=== PATIENT | male | born 2000 | race Caucasian/White ===

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

== ENCOUNTER 2021-01-04 07:43 | Outpatient (RCR) | payer BC, SELFPAY ==
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
--- NOTE | 2021-02-15 11:00 | PCOTNOTE ---
On 02/15/21, the student, [Nydia Bustos ], provided care and completed [facility] documentation on this patient. I have reviewed the student's documentation and agree with the findings. MS
--- NOTE | 2021-02-21 08:50 | OTOPEVAL ---
Thank you for referring Omar Torres to [facility].? The patient is scheduled to be seen for therapy? ____x/week for ___ weeks. Please review, sign, date and return this plan of care NASRIN. I agree with and certify that the following plan of care is medically necessary. Referring Physician Date Admitting Provider: Attending Provider: KENDRICK QUINN Referring Provider: *OT Outpatient Evaluation Start: 01/04/21 07:04 Freq: Status: Active Protocol: Document 02/21/21 07:28 [facility] [place] (Rec: 02/21/21 08:17 [facility] [place] [id number]) Therapy Assessment Status Assessment Status Assessment Status Re-evaluation Outpatient Past Medical History Musculoskeletal History Hx Fractures Yes Hx Orthopedic Surgery Yes Evaluation Information Problem Subjective Information Patient reports that he is Query Text:As Reported By Patient/ able to hold onto bottles Family much easier. Patient states that it is difficult to put his L arm through a sleeve and /or glove. Patient reports that he is able to do most things that he has to do. Patient would like to return to work and feels that his L UE/hand needs to be a little stronger. Pain Assessment Timing of Pain Assessment Timing of Pain Assessment Re-assessment Self Report Self Report Pain Level 0 Pain Score Pain Score 0: Self Report Upper Extremity Range of Motion Wrist Range of Motion Left Wrist Flexion - Active 45 Wrist Extension - Active 25 Wrist Radial Deviation - Active 20 Wrist Ulnar Deviation - Active 15 Finger Range of Motion Left Index Finger MCP Joint Flexion - Active 65 Middle Finger MCP Joint Flexion - Active 65 Ring Finger MCP Joint Flexion - Active 15 Ring Finger PIP Joint Extension - Active -55 Little Finger MCP Joint Flexion - Active -15 Little Finger PIP Joint Extension - -75 Active Thumb Range of Motion Left Thumb MCP Flexion - Active 20 Thumb Range of Motion Comments Patient is able to oppose thumb to index, middle and ring fingers. 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
--- NOTE | 2021-02-21 12:30 | PCOTNOTE ---
On 02/21/21, the student, [Nydia Bustos ], provided care and completed [facility] documentation on this patient. I have reviewed the student's documentation and agree with the findings. MS
--- NOTE | 2021-03-08 08:18 | OTOPEVAL ---
Thank you for referring Omar Torres to [facility].? The patient is scheduled to be seen for therapy? ____x/week for ___ weeks. Please review, sign, date and return this plan of care NASRIN. I agree with and certify that the following plan of care is medically necessary. 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 Quick DASH score: 20.5% Pain Assessment Timing of Pain Assessment Timing of Pain Assessment Pre-Treatment Self Report Self Report Pain Level 0 Pain Score Pain Score 0: Self Report Upper Extremity Range of Motion Finger Range of Motion Left Index Finger MCP Joint Flexion - Active 80 Middle Finger MCP Joint Flexion - Active 80 Ring Finger MCP Joint Flexion - Active 60 Ring Finger PIP Joint Extension - Active -55 Little Finger MCP Joint Flexion - Active 0 Little Finger PIP Joint Extension - -75 Active Thumb Range of Motion Left Thumb Range of Motion Comments patient able to oppose to index, middle and ring fingers without assist 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
--- NOTE | 2021-04-01 08:09 | OTOPEVAL ---
Thank you for referring Omar Torres to [facility].? The patient is scheduled to be seen for therapy? ____x/week for ___ weeks. Please review, sign, date and return this plan of care NASRIN. I agree with and certify that the following plan of care is medically necessary. Referring Physician Date Admitting Provider: Attending Provider: KENDRICK QUINN Referring Provider: *OT Outpatient Evaluation Start: 01/04/21 07:04 Freq: Status: Active Protocol: Document 04/01/21 07:09 [facility] [place]Rec[place] 04/01/21 08:08 [facility] [id number] Therapy Assessment Status Assessment Status Assessment Status Discharge Outpatient Past Medical History Musculoskeletal History Hx Fractures Yes Hx Orthopedic Surgery Yes Evaluation Information Problem Subjective Information Patient reports that he has Query Text:As Reported By Patient/ been back to work for 2 weeks Family now and things have been going well. No concerns. Patient reports no concerns with use of his hand/finger orthosis. Quick DASH: 2.3% Pain Assessment Timing of Pain Assessment Timing of Pain Assessment Re-assessment Self Report Self Report Pain Level 0 Pain Score Pain Score 0: Self Report Upper Extremity Range of Motion Wrist Range of Motion Left Wrist Flexion - Active 55 Wrist Extension - Active 40 Finger Range of Motion Left Index Finger MCP Joint Flexion - Active 80 Middle Finger MCP Joint Flexion - Active 85 Ring Finger MCP Joint Flexion - Active 70 Ring Finger PIP Joint Extension - Active -60 Little Finger MCP Joint Flexion - Active 10 Little Finger PIP Joint Extension - -80 Active Finger Range of Motion Comments intact thumb to distal phalanx of ring finger Thumb Range of Motion Left Thumb MCP Flexion - Active 25 Hand Barrel Rifler Hook/Pinch Strength Assessment Hand Left Barrel Rifler Hook Strength (lbs) 21 General Exercise General Exercises Side Left Exercise Description AROM for PIP/DIP extension Query Text:Record Sets, Reps, with MCP's held into flexion, Resistance, and Position 10 reps x 2 sets 4# resisting L elbow flexion, supination, and wrist extension, 25 reps x 2 sets. hand gripper x 25 reps x 2 sets (silver spring @ 4nd level) Manual Therapy Manual Therapy Side Left Manual Therapy Location Hand Patient Position Sitting Manual Therapy Treatment Passive Stretching Tr
== END 2021-04-01 10:33 | disposition home or self-care (01) ==
LOC: CHSOT 07:43
DX: S51.802D Unspecified open wound of left forearm, subsequent encounter (principal)
CPT/HCPCS: 97110; 97140; 97165; 97760